=== PATIENT | female | born 1945 | race Caucasian/White ===

== ENCOUNTER 2020-10-05 06:07 | Day surgery (SDC) | payer MEDICARE, OTHER ==
[~2020-10-05 06:07] MED LIST: Lactated Ringers 1,000 ML IV SCH; Lidocaine 1%/Sod Bicarbonate in NS 8.4% 1 ML Syringe IDERM PRN; Sodium Chloride 0.9% 10 ML Syringe FLUSH PRN
--- NOTE | 2020-10-05 06:40 | PCM.PREANE ---
Preanesthetic Assessment - Procedure Proposed Procedure: Left wrist ganglion cyst excision - Anesthesia/Transfusion/Family Hx Anesthesia History: Prior Anesthesia Without Reaction Family History of Anesthesia Reaction: No Transfusion History: No Prior Transfusion(s) - Review of Systems General: No Symptoms Pulmonary: No Symptoms Cardiovascular: No Symptoms Gastrointestinal: No Symptoms Neurological: No Symptoms Other: Reports: None - Physical Assessment NPO Status Date: 10/04/20 NPO Status Time: 00:00 Height: 1.7 m Weight: 62.1 kg ASA Class: 2 Mental Status: Alert & Oriented x3 Airway Class: Mallampati = 1 Dentition: Reports: [place](s) Thyro-Mental Finger Breadths: 3 Mouth Opening Finger Breadths: 3 ROM/Head Extension: Limited/Partial Lungs: Clear to Auscultation, Normal Respiratory Effort Cardiovascular: Regular Rate, Regular Rhythm - Imaging/EKG Impressions: EKG SR rate 68 - Allergies Allergies/Adverse Reactions: Allergies Allergy/AdvReac Type Severity Reaction Status Date / Time Penicillins Allergy Hives Verified 10/04/20 12:25 - Anesthesia Plan Pre-Op Medication Ordered: None - Acknowledgements Anesthesia Type Planned: MAC Pt an Appropriate Candidate for the Planned Anesthesia: Yes Alternatives and Risks of Anesthesia Discussed w Pt/Guardian: Yes Pt/Guardian Understands and Agrees with Anesthesia Plan: Yes PreAnesthesia Questionnaire HEENT History: Reports: Allergic Rhinitis, Impaired Vision, Other (See Below) Other HEENT History: wears glasses Cardiovascular History: Reports: Other (See Below) Other Cardiovascular History: benign essential hypertension Respiratory History: Reports: None Gastrointestinal History: Reports: None Genitourinary History: Reports: Other (See Below) Other Genitourinary History: bladder prolapse, bladder repair INSTRUCTIONAL TECHNOLOGY DIRECTOR History: Reports: None Musculoskeletal History: Reports: Arthritis, Muscular Dystrophy Neurological History: Reports: None Psychiatric History: Reports: None Endocrine/Metabolic History: Reports: None Hematologic History: Reports: None Immunologic History: Reports: None Oncologic (Cancer) History: Reports: None Dermatologic History: Reports: Other (See Below) Other Dermatologic History: seborrheic keratosis - Past Surgical History Head Surgeries/Procedures: Reports: None Cardiovascular Surgical History: Reports: None Respiratory Surgical History: Reports: None GI Surgical History: Reports: Cholecystectomy, Colonoscopy Female Surgical History: Reports: Tubal Ligation Male Surgical History: Reports: None Endocrine Surgical History: Reports: None Neurological Surgical History: Reports: None Musculoskeletal Surgical History: Reports: Hip Replacement Oncologic Surgical History: Reports: None Dermatological Surgical History: Reports: None - SUBSTANCE USE Tobacco Use Status *Q: Never Tobacco User Tobacco Use Within Last Twelve Months: No Second Hand Smoke Exposure: No Days Per Week of Alcohol Use: 1 Number of Drinks Per Day: 0 Total Drinks Per Week: 0 Recreational Drug Use History: No - HOME MEDS Home Medications: Home Meds Calcium Carb/Vitamin D3/Vit K1 [Calcium + D Soft Chewable Tab] 2 tab PO BID 0 10/04/20 [History] Cholecalciferol (Vitamin D3) [Vitamin D3] 5,000 unit PO DAILY 10/04/20 [History] Glucosam/Chond/Collagen/Hyalur [Glucosamine Chondroitin] 3 tab PO BID 10/04/20 [History] Mv-Min/Iron/Folic/Calcium/Vitk [Women's Multivitamin Tablet] 1 tab PO DAILY 10/04/20 [History] Niacin 500 mg PO BID 10/04/20 [History] [place]-3/DHA/Epa/Fish Oil [[place] 3 500 Softgel] 1 cap PO DAILY 10/04/20 [History] Potassium Chloride 20 meq PO DAILY 10/04/20 [History] Vitamin B Complex 1 cap PO DAILY 10/04/20 [History] guaiFENesin [Mucinex] 600 mg PO Q12H PRN 10/04/20 [History] hydroCHLOROthiazide [Hydrochlorothiazide] 25 mg PO DAILY 10/04/20 [History] Hydrocodone/Acetaminophen [Hydrocodone-Acetamin 5-325 mg] 1 - 2 each PO Q6H PRN #10 tablet 10/05/20 [Rx] - CURRENT (IN HOUSE) MEDS Current Meds: Current Medications Lactated Ringer's (Ringers, Lactated) 1,000 mls @ 125 mls/hr IV ASDIRECTED OSIRIS Stop: 10/05/20 23:00 Lidocaine/Sodium Bicarbonate (Lidocaine 1%/Sod Bicarbonate In Ns 8.4% 1 Ml Syringe) 0.25 ml IDERM ONETIME PRN PRN Reason: Prior to IV Start Stop: 10/05/20 18:00 Sodium Chloride (Sodium Chloride 0.9% 10 Ml Syringe) 10 ml FLUSH ASDIRECTED PRN PRN Reason: Keep Vein Open Stop: 10/05/20 18:00
[2020-10-05] MEDS ORDERED: Lidocaine 1% 4 ML ONE (06:49)
[2020-10-05] MEDS ORDERED: fentaNYL 100 MCG/2 ML SDV ONE (06:49)
[2020-10-05] MEDS ORDERED: ceFAZolin 1 GM Vial ONE (06:49)
[2020-10-05] MEDS ORDERED: Propofol 200 MG/20 ML SDV ONE (06:49)
[2020-10-05] MEDS ORDERED: Lidocaine 0.5% 50 ML SDV ONE (06:54)
[2020-10-05] MEDS ORDERED: Sodium Bicarbonate 8.4% 50 MEQ/50 ML SDV ONE (06:54)
--- NOTE | 2020-10-05 07:53 | PCM48HPAN ---
Post Anesthesia Note - EVALUATION WITHIN 48HRS OF ANESTHETIC Vital Signs in Normal Range: Yes Patient Participated in Evaluation: Yes Respiratory Function Stable: Yes Airway Patent: Yes Cardiovascular Function Stable: Yes Hydration Status Stable: Yes Pain Control Satisfactory: Yes Nausea and Vomiting Control Satisfactory: Yes Mental Status Recovered: Yes Vital Signs: Last Vital Signs Temp 36.2 C 10/05/20 06:10 Pulse 69 10/05/20 06:10 Resp 16 10/05/20 06:10 BP 134/82 10/05/20 06:10 Pulse Ox 99 10/05/20 06:10 - COMMENTS/OBSERVATIONS Free Text/Narrative:: no anesthesia complications noted
--- NOTE | 2020-10-11 07:25 | PCM.OPNOTE ---
- General Post-Op/Procedure Note Date of Surgery/Procedure: 10/05/20 Operative Procedure(s): left wrist dorsal ganglion cyst excision Pre Op Diagnosis: left wrist dorsal ganglion Post-Op Diagnosis: Same Anesthesia Technique: MAC, Regional Block Primary Surgeon: Fidencio Campbell Anesthesia Provider: Dat Toussaint Horizontal Drill Operator: Selam Padilla EBL in mLs: 5 Complications: None Condition: Good
--- NOTE | 2020-10-11 12:25 | OR ---
DATE OF OPERATION: 10/05/2020 SURGEON: Fidencio Campbell MD OPERATION PERFORMED: Left wrist dorsal ganglion cyst excision. PREOPERATIVE DIAGNOSIS: Left wrist dorsal ganglion. POSTOPERATIVE DIAGNOSIS: Left wrist dorsal ganglion. ANESTHESIA: MAC with regional [place] block. ANESTHESIA PROVIDER: Dat Toussaint CRNA RESTORATIVE ART EMBALMER: Selam Padilla PA-C ESTIMATED BLOOD LOSS: Less than 5 mL. COMPLICATIONS: None. CONDITIONS: Stable. DESCRIPTION OF PROCEDURE: The patient was identified in the preoperative holding area. Proper site was marked and identified by the surgeon. The patient was taken back to the operative theater where, after adequate anesthesia, the patient's left upper extremity had a [place] block obtained and was then sterilely prepped and draped in the usual sterile fashion. OR time-out was performed. The patient received 2 g of IV Ancef before the Donna block. At this time, a standard dorsal incision was made over the dorsal ganglion. Blunt dissection was taken down. I was able to find a stalk and a small rent in the capsule. The ganglion cyst, which measured roughly 3.5 cm x 2.5 cm, was then excised from the dorsum of the capsule and was sent for permanent specimen. The small rent in the capsule was cauterized, and then 2-0 Vicryl was used for closure of the capsule. At this time, adequate saline was irrigated through the wound. 3-0 Vicryl was used subcutaneously, and cuticular closure was then completed. The patient had a sterile soft dressing applied and was sent to the PACU in stable condition. MMODAL /[id number]
== END 2020-10-05 09:01 | disposition home or self-care (01) ==
LOC: JD.SDS 06:07
PROVIDERS: ATTEND Orthopaedic Surgery
DX: M67.432 Ganglion, left wrist (principal); I10 Essential (primary) hypertension; E87.6 Hypokalemia; Z88.0 Allergy status to penicillin; Z79.899 Other long term (current) drug therapy; Z98.890 Other specified postprocedural states; Z87.891 Personal history of nicotine dependence
CPT/HCPCS: 25111; 88304; J0690; J2704; J3010; J7120; 01810; 99100

== ENCOUNTER 2025-04-13 06:59 | Day surgery (SDC) | payer MEDICARE, OTHER ==
[~2025-04-13 06:59] MED LIST changes: -Lactated Ringers 1,000 ML IV SCH; -Lidocaine 1%/Sod Bicarbonate in NS 8.4% 1 ML Syringe IDERM PRN; +Sodium Chloride 0.9% 10 ML Syringe FLUSH SCH
[2025-04-13] MEDS: Lactated Ringers 1,000 ML IV SCH (07:20)
[2025-04-13] MEDS ORDERED: Propofol 200 MG/20 ML SDV ONE ×2 (07:41→08:01)
[2025-04-13] MEDS ORDERED: Ondansetron 4 MG/2 ML SDV IVPUSH PRN (08:00)
[2025-04-13] MEDS ORDERED: fentaNYL 100 MCG/2 ML SDV IVPUSH PRN (08:00)
== END 2025-04-13 09:10 | disposition home or self-care (01) ==
LOC: JD.SDS 06:59
PROVIDERS: ATTEND Surgery
DX: Z12.11 Encounter for screening for malignant neoplasm of colon (principal); K57.30 Diverticulosis of large intestine without perforation or abscess without bleeding; K64.0 First degree hemorrhoids; R19.5 Other fecal abnormalities; I10 Essential (primary) hypertension; Z88.0 Allergy status to penicillin; Z79.899 Other long term (current) drug therapy
CPT/HCPCS: G0121; J2704; J7120